=== PATIENT | male | born 1980 | race Caucasian/White ===

== ENCOUNTER 2018-09-30 13:45 | Emergency (ER) | payer OTHER ==
[~2018-09-30] VITALS: Ht 172.7 cm; Wt 92.7 kg
[2018-09-30 13:55] VITALS: BP 124/73
--- NOTE | 2018-09-30 14:00 | NUR ---
PT AMBULATED TO LOBBY AT THIS TIME W/ VSS
--- NOTE | 2018-09-30 14:20 | NUR ---
Note undone in EDM - 09/30/18 at 1457 by MED PT C/O JAW PAIN X3 WEEKS. PT REPORTS HE IS UNABLE TO FULLY OPEN JAW AND HAS JAW PAIN ON LT SIDE WHEN HE DOES OPEN JAW. DENIES TRAUMA OR INJURY. [employer] WHO RECOMENDED PT GET AN MRI AND PRESCRIBED STEROIDS. DENIES N/V/D; SKIN IS PINK/WARM/DRY; AAOX4 WITH EVEN AND STEADY GAIT; NO CREPTUS SWELLING LYMPH NODES AROUND LEFT JAW. PT DENIES ANY FEVER, CP, SOB, OR COUGH AT THIS TIME; PATIENT STATES PAIN OF 7/10 AT THIS TIME; VSS; PATIENT POSITIONED FOR COMFORT; HOB ELEVATED; BEDRAILS UP X1; BED DOWN. ER MD MADE AWARE OF PT STATUS.
--- NOTE | 2018-09-30 14:40 | NUR ---
PT AMBULATED TO ER BED 8
--- NOTE | 2018-09-30 14:45 | NUR ---
PT C/O JAW PAIN X3 WEEKS. PT REPORTS HE IS UNABLE TO FULLY OPEN JAW AND HAS JAW PAIN ON LT SIDE WHEN HE DOES OPEN JAW. DENIES TRAUMA OR INJURY. [facility] [employer] WHO RECOMENDED PT GET AN MRI AND PRESCRIBED STEROIDS. DENIES N/V/D; SKIN IS PINK/WARM/DRY; AAOX4 WITH EVEN AND STEADY GAIT; NO CREPTUS SWELLING LYMPH NODES AROUND LEFT JAW. PT DENIES ANY FEVER, CP, SOB, OR COUGH AT THIS TIME; PATIENT STATES PAIN OF 7/10 AT THIS TIME; VSS; PATIENT POSITIONED FOR COMFORT; HOB ELEVATED; BEDRAILS UP X1; BED DOWN. ER MD MADE AWARE OF PT STATUS.
--- NOTE | 2018-09-30 15:16 | NUR ---
DR. BOND BEDSIDE EVALUATING PT
[2018-09-30 15:47] VITALS: BP 121/66
--- NOTE | 2018-09-30 15:47 | NUR ---
Patient discharged with v/s stable. Written and verbal after care instructions given and explained. Patient verbalized understanding. Ambulatory with steady gait. All questions addressed prior to discharge. Advised to follow up with PMD, [facility].
== END 2018-09-30 15:47 | disposition home or self-care (01) ==
LOC: MED 13:45
DX: K08.89 Other specified disorders of teeth and supporting structures (principal)
CPT/HCPCS: 99281; 99283